=== PATIENT | male | born 1940 | race Caucasian/White ===

== ENCOUNTER 2016-08-04 19:08 | Emergency (ER) | payer MEDICARE, MEDICAID ==
[~2016-08-04] VITALS: Ht 182.9 cm; Wt 108.9 kg
[~2016-08-04 19:08] MED LIST: ASPIRIN CHILDRE81 MG PO; FLAGYL500 MG PO; NEOMYCIN 500MG500 MG PO; POTASSIUM99 MG PO; ULTRACET 325 MG1 TAB PO; VICODIN 5/500 T1 TAB PO; ZANTAC 7575 MG PO
--- NOTE | 2016-08-04 20:08 | Emergency Room Report ---
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 N Clinical Suspician of Infection? N Mental Status: 1 - Regular (Normal Baseline) Sepsis Risk:Possible Sepsis Risk Have you (or family members/close friends) recently traveled outside the [place]? N If Yes, where/when: Have you had exposure to infectious disease within the past month? N TB? Other? Specify: Comment The patient had a riding lawnmower rollover on him. He complains of a laceration to his RIGHT lower leg and says that he has a throbbing pain in his leg associated with it. He denies any other pain. He has a bruise on his RIGHT shoulder but says it does not hurt and he is able to move it without problems. He denies any injury to head, neck, chest, back, or abdomen. ALLERGIES Coded Allergies: No Known Allergies (03/27/16) Home Medications Reported Medications ASPIRIN (Aspirin) 81 MG PO DAILY POTASSIUM GLUCONATE (Potassium Gluconate) 99 MG PO DAILY History Medical History General CAD? No Angina: No [place]: No Hypertension? No Hyperlipidemia? No CHF? No DVT? No PE? No COPD? No Asthma? No Anemia? No GERD? Yes Gastric ulcers? No GI Bleed? No Hernia? Yes Thyroid Problems? No Hypothyroidism? No CVA? Yes Seizures? No Diabetes? No Renal Insuffiency? No End Stage Renal Disease? No UTI? No Stones? No BPH? Yes GB Disease: No Nephritic Syndrome? No Asplenia? No Hepatitis? No Sickle Cell Disease? No Arthritis? Yes Migraines? No Cataracts? Yes Glaucoma? No MRSA? No HIV? No TB? No Anxiety? No Depression? No Cancer? Yes Site: COLON Immunization Hx DT/Tetanus Unknown Flu 2YRSorMore Pneumonia NEVER Surgical Hx Previous Surgery?Y RT SHOULDER RIGHT HIP ANKLE Family History Family Hx Diabetes Yes CAD No Hypertension Yes Hyperlipidemia No Cancer Yes TB No Social History Smoking Hx Smoker: Former Smoker Tobacco: No Alcohol Alcohol: No Review of Systems All Other Systems Reviewed and Negative Respiratory denies shortness of breath Cardiovascular denies chest pain Gastrointestinal denies abdominal pain, denies vomiting Skin see HPI Psychiatric/Neurological denies headache, denies numbness, denies weakness Physical Exam Vital Signs Vital Signs Date Time Temp Pulse Resp B/P Pulse O2 O2 Flow FiO2 Ox Delivery Rate 08/04 2008 98.5 81 20 134/76 97 08/05 1911 98.5 91 20 1420/90 95 General Appearance normal appearance, WD/WN Eye Exam - bilateral eye normal exam, bilateral eye PERRL, bilateral eye EOMI Ear, Nose, Throat hearing grossly normal, normal ENT inspection Neck normal inspection, non-tender, supple, full range of motion Respiratory Status Yes: non tender chest. No: respiratory distress. Cardiovascular regular rate/rhythm, normal peripheral pulses Peripheral Pulses Pulses normal Yes Gastrointestinal non tender, soft Extremities normal dorsalis pedis and posterior tibialis pulses, normal capillary refill and sensation and warmth., abrasion/ecchymosis RIGHT anterior shoulder without tenderness. Normal range of motion. Neurovascular intact. Neurologic alert, alley tender II-XII nml as tested, normal exam, oriented x 3 Mental status normal mood/affect Skin intact, normal color, warm/dry Medical Decision Making LABS/Meds/Orders Pt receiving controlled substance in ED? No Results/Orders Current Medication Orders Sig/Avel Start time Last Medication Dose Route Stop Time Status Admin Lidocaine/Epinephrine 0 .STK-MED ONE 08/04 2022 DC .ROUTE Lidocaine/Epinephrine 10 ML ONCE ONE 08/04 2014 DC SC 08/05 2015 Diphtheria/Pertussis/ 0.5 ML ONCE ONE 08/04 1929 DC 08/04 Tetanus Vacc IM 08/04 Lidocaine HCl 0 .STK-MED ONE 08/04 1925 DC .ROUTE Diphtheria/Pertussis/ 0 .STK-MED ONE 08/05 1923 DC Tetanus Vacc IM Orders Procedure Date/time Status [id number] VIEWS 08/04 1925 Active LOWER LEG-RT 08/04 1925 Active HUMERUS-RT 08/04 1925 Active FOREARM-RT 08/04 1925 Active Procedures Laceration/Wound Repair Progress Laceration Repair Performed by: STEVE CHING Consent: Verbal consent obtained. Risks and benefits: risks, benefits and alternatives were discussed Consent given by: patient Patient identity confirmed: verbally with patient Laceration location: RIGHT leg Laceration length: 6 cm Local anesthetic: 1 percent lidocaine plain Wound prep: Sterilly scrubbed with Hibiclens and irrigated with copious normal saline. Draping: Sterile in usual manner Patient sedated: no Debridement: Minimal Exploration: No deep structure injury or foreign body found. Layers Closed: Skin, Subcutaneous Suture material, skin: 4-0 Prolene Suture material, subcutaneous: 4-0 vicryl Number of sutures: Subcutaneous 5, skin 10 Repair complexity: Intermediate Patient tolerance: Patient tolerated the procedure well with no immediate complications Departure Departure Disposition DC Home or Self Care(routine) Clinical Impression Primary Impression: Leg laceration Qualifiers: Encounter type: initial encounter Laterality: right Qualified Code: S81.811A - Laceration without foreign body, right lower leg, initial encounter Secondary Impressions: Contusion of right shoulder Qualifiers: Encounter type: initial encounter Qualified Code: S40.011A - Contusion of right shoulder, initial encounter Condition STABLE Referrals Leonidas KELLY,Krish Cortez (Family) Patient Instructions DI for Laceration Repair Additional Instructions Additional instructions for LACERATION: Clean the wound daily with soap and water. You may shower and apply a bandage daily. Avoid submerging the wound, no swimming. See your primary care physician or return in 10 days for suture removal. Return if any signs of infection including increasing pain, pus drainage, swelling, redness, red streaks, or fever. ED Critical Care Critical Care No at 2046
--- NOTE | 2016-08-04 20:08 | Emergency Room Report ---
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 N Clinical Suspician of Infection? N Mental Status: 1 - Regular (Normal Baseline) Sepsis Risk:Possible Sepsis Risk Have you (or family members/close friends) recently traveled outside the [place]? N If Yes, where/when: Have you had exposure to infectious disease within the past month? N TB? Other? Specify: Comment The patient had a riding lawnmower rollover on him. He complains of a laceration to his RIGHT lower leg and says that he has a throbbing pain in his leg associated with it. He denies any other pain. He has a bruise on his RIGHT shoulder but says it does not hurt and he is able to move it without problems. He denies any injury to head, neck, chest, back, or abdomen. ALLERGIES Coded Allergies: No Known Allergies (03/27/16) Home Medications Reported Medications ASPIRIN (Aspirin) 81 MG PO DAILY POTASSIUM GLUCONATE (Potassium Gluconate) 99 MG PO DAILY History Medical History General CAD? No Angina: No [place]: No Hypertension? No Hyperlipidemia? No CHF? No DVT? No PE? No COPD? No Asthma? No Anemia? No GERD? Yes Gastric ulcers? No GI Bleed? No Hernia? Yes Thyroid Problems? No Hypothyroidism? No CVA? Yes Seizures? No Diabetes? No Renal Insuffiency? No End Stage Renal Disease? No UTI? No Stones? No BPH? Yes GB Disease: No Nephritic Syndrome? No Asplenia? No Hepatitis? No Sickle Cell Disease? No Arthritis? Yes Migraines? No Cataracts? Yes Glaucoma? No MRSA? No HIV? No TB? No Anxiety? No Depression? No Cancer? Yes Site: COLON Immunization Hx DT/Tetanus Unknown Flu 2YRSorMore Pneumonia NEVER Surgical Hx Previous Surgery?Y RT SHOULDER RIGHT HIP ANKLE Family History Family Hx Diabetes Yes CAD No Hypertension Yes Hyperlipidemia No Cancer Yes TB No Social History Smoking Hx Smoker: Former Smoker Tobacco: No Alcohol Alcohol: No Review of Systems All Other Systems Reviewed and Negative Respiratory denies shortness of breath Cardiovascular denies chest pain Gastrointestinal denies abdominal pain, denies vomiting Skin see HPI Psychiatric/Neurological denies headache, denies numbness, denies weakness Physical Exam Vital Signs Vital Signs Date Time Temp Pulse Resp B/P Pulse O2 O2 Flow FiO2 Ox Delivery Rate 08/04 2008 98.5 81 20 134/76 97 08/05 1911 98.5 91 20 1420/90 95 General Appearance normal appearance, WD/WN Eye Exam - bilateral eye normal exam, bilateral eye PERRL, bilateral eye EOMI Ear, Nose, Throat hearing grossly normal, normal ENT inspection Neck normal inspection, non-tender, supple, full range of motion Respiratory Status Yes: non tender chest. No: respiratory distress. Cardiovascular regular rate/rhythm, normal peripheral pulses Peripheral Pulses Pulses normal Yes Gastrointestinal non tender, soft Extremities normal dorsalis pedis and posterior tibialis pulses, normal capillary refill and sensation and warmth., abrasion/ecchymosis RIGHT anterior shoulder without tenderness. Normal range of motion. Neurovascular intact. 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 No Results/Orders Current Medication Orders Sig/Avel Start time Last Medication Dose Route Stop Time Status Admin Lidocaine/Epinephrine 0 .STK-MED ONE 08/04 2022 DC .ROUTE Lidocaine/Epinephrine 10 ML ONCE ONE 08/04 2014 DC SC 08/05 2015 Diphtheria/Pertussis/ 0.5 ML ONCE ONE 08/04 1929 DC 08/04 Tetanus Vacc IM 08/04 Lidocaine HCl 0 .STK-MED ONE 08/04 1925 DC .ROUTE Diphtheria/Pertussis/ 0 .STK-MED ONE 08/05 1923 DC Tetanus Vacc IM Orders Procedure Date/time Status [id number] [id number] 08/04 1925 Active LOWER LEG-RT 08/04 1925 Active HUMERUS-RT 08/04 1925 Active FOREARM-RT 08/04 1925 Active Procedures Laceration/Wound Repair Progress Laceration Repair Performed by: STEVE CHING Consent: Verbal consent obtained. Risks and benefits: risks, benefits and alternatives were discussed Consent given by: patient Patient identity confirmed: verbally with patient Laceration location: RIGHT leg Laceration length: 6 cm Local anesthetic: 1 percent lidocaine plain Wound prep: Sterilly scrubbed with Hibiclens and irrigated with copious normal saline. Draping: Sterile in usual manner Patient sedated: no Debridement: Minimal Exploration: No deep structure injury or foreign body found. Layers Closed: Skin, Subcutaneous Suture material, skin: 4-0 Prolene Suture material, subcutaneous: 4-0 vicryl Number of sutures: Subcutaneous 5, skin 10 Repair complexity: Intermediate Patient tolerance: Patient tolerated the procedure well with no immediate complications Departure Departure Disposition DC Home or Self Care(routine) Clinical Impression Primary Impression: Leg laceration Qualifiers: Encounter type: initial encounter Laterality: right Qualified Code: S81.811A - Laceration without foreign body, right lower leg, initial encounter Secondary Impressions: Contusion of right shoulder Qualifiers: Encounter type: initial encounter Qualified Code: S40.011A - Contusion of right shoulder, initial encounter Condition STABLE Referrals Leonidas KELLY,Krish Cortez (Family) Patient Instructions DI for Laceration Repair Additional Instructions Additional instructions for LACERATION: Clean the wound daily with soap and water. You may shower and apply a bandage daily. Avoid submerging the wound, no swimming. See your primary care physician or return in 10 days for suture removal. Return if any signs of infection including increasing pain, pus drainage, swelling, redness, red streaks, or fever. ED Critical Care Critical Care No at 2046
[2016-08-04 20:54] VITALS: BP 134/76
--- NOTE | 2016-08-05 09:18 | RADIOLOGY REPORT PS360 ---
[id number] VIEWS COMPARISON: CT scan the chest 05/11/2010 HISTORY: Right shoulder pain after rolling over lawnmower TECHNIQUE: 3 views right shoulder FINDINGS: The clavicle is intact. Is minor degenerative change of the AC joint. The humeral head rides high and there is severe subacromial stenosis compounded by a lateral downsloping acromion process. There is deformity of the humeral head and neck consistent with old healed fracture but this is stable and unchanged from the appearance on the previous CT scan of the chest in April 2010. There is no acute fracture. The scapula is intact. The soft tissues are normal. IMPRESSION: Posttraumatic deformity of the humeral head prominent subacromial stenosis suggesting rather severe impingement syndrome, no definite acute fracture seen
--- NOTE | 2016-08-05 09:20 | RADIOLOGY REPORT PS360 ---
HUMERUS-RT COMPARISON: None HISTORY: Right arm pain after lawnmower accident TECHNIQUE: AP and semioblique views FINDINGS: The prominent deformity and humeral head is again noted described previously. There is a periarticular ossification near the inferior lip of the glenoid. Humeral shaft is intact with no evidence of acute fracture. The soft tissues are normal. IMPRESSION: Negative for acute fracture
--- NOTE | 2016-08-05 09:22 | RADIOLOGY REPORT PS360 ---
FOREARM-RT COMPARISON: None HISTORY: Right forearm pain after a lawnmower accident TECHNIQUE: AP and lateral views FINDINGS: There is mild focal soft tissue swelling of the proximal forearm. The radius and ulna appear intact with no evidence of recent or old fracture and there are no soft tissue foreign bodies. There is minimal spurring of the tip of the olecranon. IMPRESSION: Question soft tissue contusion, no fracture seen
--- NOTE | 2016-08-05 09:23 | RADIOLOGY REPORT PS360 ---
LOWER LEG-RT COMPARISON: None HISTORY: Right lower leg pain and contusion after lawnmower accident TECHNIQUE: AP lateral and oblique views FINDINGS: The tibia and fibula appear intact with no evidence of fracture. There is somewhat mottled appearance to the soft tissues of the calf and lower leg suggesting contusion. There are no soft tissue foreign bodies. IMPRESSION: Probable soft tissue injury, right lower leg negative for fracture
== END 2016-08-04 20:54 | disposition home or self-care (01) ==
LOC: ER 19:08
PROC: 0JQN0ZZ Repair Right Lower Leg Subcutaneous Tissue and Fascia, Open Approach (ICD-10-PCS; principal; 2016-08-04)
DX: S81.811A Laceration without foreign body, right lower leg, initial encounter (principal); S40.011A Contusion of right shoulder, initial encounter; Z72.0 Tobacco use; W30.89XA Contact with other specified agricultural machinery, initial encounter; Y92.017 Garden or yard in single-family (private) house as the place of occurrence of the external cause

== ENCOUNTER 2017-03-27 08:52 | Day surgery (SDC) | payer MEDICARE, MEDICAID ==
--- NOTE | 2017-03-27 10:23 | Operative Note ---
Endoscopy Report Date: 03/27/17 Preoperative diagnosis: History of colon cancer and numerous polyps Procedure Type of procedure: Total colonoscopy with polypectomy Indications: He is a 76-year-old white male who underwent RIGHT hemicolectomy on 02/18/[address] Stephens for a T2N0 adenocarcinoma of the RIGHT colon. Dr. Stephens had done several follow-up colonoscopies. He had colonoscopy in January 2010 which was reportedly normal, February 2012 which revealed a tubulovillous adenoma, February 2013 which was reportedly normal, and February 2014 which was normal. I did colonoscopy in March 2016 which revealed 15 polyps, 11 or 12 of which were tubular adenomas. Due to the large number of polyps or recommended a one-year follow-up. Consent was obtained the patient was taken to same-day surgery endoscopy procedure room. He was positioned in a lateral decubitus position. Adequate intravenous sedation was achieved with titration of 6 mg Versed and 150 g fentanyl for the duration of the procedure. She'll examination was performed which revealed minor internal/external hemorrhoids. Variable stiffness Olympus colonoscope was inserted via the anus and advanced to the ileocolic anastomosis. This was widely patent and the colonoscope was advanced a short distance into the terminal ileum which appeared normal. Colonoscope was withdrawn to the colon. In the descending colon he had a diminutive polyp removed in a piecemeal fashion using cold biopsy forceps. He had some sigmoid diverticulosis. Within the rectum there is several hyperplastic appearing polyps and these were sampled and removed with cold biopsy forceps. Retroflexion did reveal internal hemorrhoids which were nonpathologic appearing. Colonoscope was withdrawn. Findings 1. Polyp 2. Diverticulosis Follow-Up Follow-Up: I will follow-up on the histopathology. Likely plan repeat colonoscopy in 2 years. at [id number]
--- NOTE | 2017-03-27 11:35 | RADIOLOGY REPORT PS360 ---
WRIST-3 VIEWS-RT HISTORY: Pain following injury RT WRIST INJURY,FELL AT HOME ORDERING PHYSICIAN: Cory Rosales MD PATIENT AGE: 76 years COMPARISON: None FINDINGS: No fracture or dislocation. No lytic or blastic change. There is normal mineralization.. 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 IMPRESSION: No acute findings
[2017-03-27 15:29] VITALS: BP 113/63
== END 2017-03-27 11:00 | disposition home or self-care (01) ==
LOC: SDC 08:52 → RAD 08:52 → SDC 09:30
PROVIDERS: Surgery
PROC: 0DBP8ZX Excision of Rectum, Via Natural or Artificial Opening Endoscopic, Diagnostic (ICD-10-PCS; 2017-03-27)
PROC: 0DBM8ZX Excision of Descending Colon, Via Natural or Artificial Opening Endoscopic, Diagnostic (ICD-10-PCS; principal; 2017-03-27 09:30)
DX: Z85.038 Personal history of other malignant neoplasm of large intestine (principal); K63.5 Polyp of colon; K57.90 Diverticulosis of intestine, part unspecified, without perforation or abscess without bleeding; K64.8 Other hemorrhoids